=== PATIENT | male | born 1975 | race Caucasian/White ===

== ENCOUNTER → 2020-08-20 | Outpatient (CLI) | payer OTHER ==
[2013-12-18 19:44] VITALS: BP 149/74
[~2020-08-20] MED LIST: HYDR12.58 PO
--- NOTE | 2020-08-20 17:18 | CARD ---
MR#: [id number] Date of Study: 08/20/2020 Ordering Physician: ROBERTA PEREZ, Referring Physician: ROBERTA PEREZ, Tech: Verenice Medina RDCS APPROVED REPORT EXAM: Two-dimensional and M-mode echocardiogram with Doppler and color Doppler. Other Information Quality : Fair Rhythm : Atrial Fibrillation INDICATION Peripheral Edema Dyspnea on Exertion 2D DIMENSIONS RVDd3.3 (2.9-3.5cm)Left Atrium(2D)5.0 (1.6-4.0cm) IVSd1.4 (0.7-1.1cm)Aortic Root(2D)3.0 (2.0-3.7cm) LVDd5.1 (3.9-5.9cm)LVOT Diameter2.5 (1.8-2.4cm) PWd1.4 (0.7-1.1cm)LVDs2.7 (2.5-4.0cm) FS (%) 30.0 %SV97.9 ml LVEF(%)60.0 (>50%) Aortic Valve AoV Peak Tyrese.111.8cm/sAoV VTI22.1cm AO Peak GR.5.0mmHgLVOT Peak Tyrese.94.6cm/s LVOT VTI 19.47cmAO Mean GR.3mmHg RYAN (VMAX)3.53oi9FLG (VTI)4.16cm2 Mitral Valve MV E Kiprpdzl008.8cm/sMV DECEL JZZI157ps MV HWY38zlVFG (PHT)4.70cm2 Tricuspid Valve TR P. Slaywqam979bt/sRAP FAYUVENE7zbWa TR Peak Gr.50ncAzVVMC73hbOu Pulmonary Vein S1 Ftkdhfph28.8cm/sD2 Kfpyzlnu34.9cm/s LEFT VENTRICLE The left ventricle is normal size. There is mild to moderate concentric left ventricular hypertrophy. The left ventricular systolic function is normal and the ejection fraction is within normal range. T he Ejection Fraction is 55-60%. There is normal LV segmental wall motion. Tissue Doppler imaging reve als mild left ventricular diastolic dysfunction. RIGHT VENTRICLE The right ventricle is normal size. The right ventricular systolic function is normal. ATRIA The left atrium is moderately dilated. The right atrium is not well visualized. The interatrial septu m is intact with no evidence for an atrial septal defect or patent foramen ovale as noted on 2-D or D oppler imaging. AORTIC VALVE The aortic valve is calcified but opens well. Doppler and Color Flow revealed no significant aortic r egurgitation. There is no significant aortic valvular stenosis. MITRAL VALVE The mitral valve is calcified but opens well. Mitral annular calcification is mild. There is no evide nce of mitral valve prolapse. There is no mitral valve stenosis. Doppler and Color-flow revealed trac e to mild mitral regurgitation. TRICUSPID VALVE The tricuspid valve is normal in structure and function. Doppler and Color Flow revealed trace tricus pid regurgitation. The PA pressure was estimated at 27 mmHg. There is no tricuspid valve stenosis. PULMONIC VALVE The pulmonic valve is not well visualized. Doppler and Color Flow revealed mild pulmonic valvular reg urgitation. There is no pulmonic valvular stenosis. GREAT VESSELS The aortic root is normal in size. The ascending aorta is not well seen. The IVC was not visualized. PERICARDIAL EFFUSION There is no evidence of significant pericardial effusion. Critical Notification Critical Value: No <Conclusion> The left ventricular systolic function is normal and the ejection fraction is within normal range. Th e Ejection Fraction is 55-60%. There is normal LV segmental wall motion. Technically difficult study. Signed by : Franky Newsome, Electronically Approved : 08/20/2020 17:18:30
== END ==
LOC: ECHO 13:51
PROVIDERS: ATTEND Physician Assistant Medical
DX: I08.8 Other rheumatic multiple valve diseases (principal)
CPT/HCPCS: 93306

== ENCOUNTER 2021-03-25 10:28 | Day surgery (SDC) | payer OTHER ==
[~2021-03-25] VITALS: Ht 190.5 cm; Wt 213.6 kg
[~2021-03-25 10:28] MED LIST changes: +AMIO200T6 PO; +APIX5TAB PO; +IBUP200T58 PO; +IV RINGERS,LACTATED 1000ML 1,000 ML IV SCH; +LOSA1TAB22 PO; +METO-239 PO
[2021-03-25 10:52] VITALS: BP 162/77
--- NOTE | 2021-03-25 10:55 | EKG ---
[facility] [address] [place] [address] Test Date: 2021-03-25 Test Time: 10:52:59 Pat Name: ABDULKADIR OLSON Department: Room: Gender: M [employer] Hel[employer]: JESSICA : 1975 Requested By: JAMAR MARTINEZ Order Number: [id number] Reading MD: Measurements Intervals [place] Rate: 74 P: [place]: QRS: -26 QRSD: 106 T: 23 QT: 390 QTc: 438 Interpretive Statements IRREGULAR RHYTHM, NO P-WAVE FOUND LEFTWARD AXIS R-S TRANSITION ZONE IN V LEADS DISPLACED TO THE LEFT S1,S2,S3 PATTERN INCOMPLETE RIGHT BUNDLE BRANCH BLOCK CONSIDER RIGHT VENTRICULAR HYPERTROPHY POSSIBLY ABNORMAL ECG RI6.02 No previous ECG available for comparison
[2021-03-25] MEDS ORDERED: BENZOCAINE ONE 20% MUCOSAL SPRAY. MM (11:00)
[2021-03-25] MEDS ORDERED: LIDOCAINE 2% VISCOUS 15 ML SOLUTION. SWSW ONE (11:00)
[2021-03-25] MEDS ORDERED: LIDOCAINE 2% TOPICAL JELLY 30GM TUBE. TP ONE ×2 (11:07→11:45)
[2021-03-25] MEDS ORDERED: LIDOCAINE 2% JELLY 6ML IN APPLICATOR. MM ONE (11:30)
[2021-03-25] MEDS ORDERED: PROPOFOL 10 MG/ML (20ML) VIAL. IV ONE (11:35)
[2021-03-25 11:36] LABS: CALCIUM 8.9 mg/dL (8.5-10.1); CREATININE 0.9 mg/dL (0.7-1.3); GFR 91.7; MAGNESIUM 1.9 mg/dL (1.8-2.4); POTASSIUM 4.2 mmol/L (3.5-5.1)
[2021-03-25] MEDS ORDERED: LIDOCAINE 2% PF 5 ML VIAL. ONE (11:36)
[2021-03-25 12:32] VITALS: BP 135/58
--- NOTE | 2021-03-25 14:21 | CARD ---
MR#: [id number] Date of Study: 03/25/2021 Ordering Physician: JAMAR NEWSOME, Referring Physician: JAMAR NEWSOME, Tech: Shalini Stovall, [facility] APPROVED REPORT EXAM: Two-dimensional and M-mode echocardiogram with Doppler and color Doppler. INDICATION Atrial Fibrillation Reason For Test : Rule out Intracardiac Thrombus. PROCEDURE After obtaining informed consent, patient underwent transesophageal echo in the PACU. Type of Sedation : General Anesthesia Sedation was administered by Christel. Sedation was achieved with Propofol 150mg intravenously. Transesophageal probe was inserted and advanced into esophagus by Dev Newsome MD. The ALEX was performed without complications. Synchronized Cardioversion attempted: Unsuccessful Rhythm following Synchronized Cardioversion: Atrial fibrillation Throughout the procedure, the blood pressure, pulse oximetry, cardiac rhythm, and rate were monitored . The patient tolerated the procedure without adverse effects. Recovery from general anesthesia was une ventful and vital signs were stable. LEFT VENTRICLE The Left Ventricle is mildly dilated. There is normal left ventricular wall thickness. The systolic f unction is mildly impaired. EF 45% There is mild global hypokinesis. No left ventricle thrombus noted on this study. There is no ventricular septal defect visualized. There is no left ventricular aneury sm. There is no mass noted in the left ventricle. RIGHT VENTRICLE The right ventricle is normal size. There is normal right ventricular wall thickness. The right ventr icular systolic function is normal. ATRIA The left atrium is moderately dilated. The right atrium is mildly dilated. The interatrial septum is intact with no evidence for an atrial septal defect or patent foramen ovale as noted on 2-D or Dopple r imaging. There is no thrombus noted in the left atrial appendage. AORTIC VALVE The aortic valve is thickened but opens well. Doppler and Color Flow revealed no significant aortic r egurgitation. There is no significant aortic valvular stenosis. MITRAL VALVE The posterior mitral leaflet is restricted. There is no mitral valve stenosis. Doppler and Color-flow revealed trace mitral regurgitation. TRICUSPID VALVE The tricuspid valve is normal in structure and function. Doppler and Color Flow revealed no tricuspid valve regurgitation noted. There is no tricuspid valve stenosis. PULMONIC VALVE The pulmonic valve is not well visualized. Doppler and Color Flow revealed no pulmonic valvular regur gitation. There is no pulmonic valvular stenosis. GREAT VESSELS The aortic root is normal in size. The IVC is normal in size and collapses >50% with inspiration. PERICARDIAL EFFUSION There is no evidence of significant pericardial effusion. There is no pleural effusion. Critical Notification Critical Value: No <Conclusion> The systolic function is mildly impaired. EF 45% There is mild global hypokinesis. Unsuccessful CVN. Signed by : Jamar Newsome, Electronically Approved : 03/25/2021 14:21:29
== END 2021-03-25 13:14 | disposition home or self-care (01) ==
LOC: SURG 10:28
PROVIDERS: ATTEND Internal Medicine Cardiovascular Disease
DX: I48.91 Unspecified atrial fibrillation (principal); I34.0 Nonrheumatic mitral (valve) insufficiency; I10 Essential (primary) hypertension; Z98.890 Other specified postprocedural states
CPT/HCPCS: 36415; 80048; 83735; 92960; 93005; 93312; 93325; J2704